=== PATIENT | female | born 1980 | race Caucasian/White ===

== ENCOUNTER 2016-04-22 11:15 | Emergency (ER) | payer OTHER ==
[2016-04-22] MEDS ORDERED: ACETAMINOPHEN 325 MG TABLET PO STA (12:30)
[2016-04-22] MEDS ORDERED: IBUPROFEN 600 MG TABLET PO STA (12:30)
[2016-04-22] MEDS ORDERED: ACETAMINOPHEN 325 MG TABLET PO ONE (12:44)
[2016-04-22] MEDS ORDERED: IBUPROFEN 600 MG TABLET PO ONE (12:44)
[2016-04-22] MEDS ORDERED: HYDROcod/ACETAM 5/325 MG TABLET PO STA (13:32)
[2016-04-22] MEDS ORDERED: METHOCARBAMOL 500 MG TABLET PO STA (13:32)
[2016-04-22] MEDS ORDERED: HYDROcod/ACETAM 5/325 MG TABLET ONE (13:36)
[2016-04-22] MEDS ORDERED: METHOCARBAMOL 500 MG TABLET PO ONE (13:36)
== END 2016-04-22 13:52 | disposition home or self-care (01) ==
DX: R07.9 Chest pain, unspecified (principal); M25.512 Pain in left shoulder; F17.200 Nicotine dependence, unspecified, uncomplicated
CPT/HCPCS: 36415; 71020; 80053; 83690; 84484; 93005; 93010; 99283; 99284; A9270